=== PATIENT | female | born 1955 | race Caucasian/White ===

== ENCOUNTER → 2016-12-08 | Outpatient (CLI) | payer OTHER ==
[~2016-12-08] MED LIST: BENICAR40 MG PO; CENTRUM SILVER1 EAC1 PO; FISH OIL 1,0001 EAC5 PO; GLUCOPHAGE500 MG PO; JANUVIA100 MG PO; METAMUCIL PAC1 UDPK1; VITAMIN D 3 PO; WELCHOL 625 MG625 MG PO; ZOCOR 10 MG TAB10 MG PO
== END ==
LOC: RAD 04:25
DX: Z12.31 Encounter for screening mammogram for malignant neoplasm of breast (principal)

== ENCOUNTER → 2017-12-12 | Outpatient (CLI) | payer OTHER | LOC: RAD 08:37 | DX: Z12.31 Encounter for screening mammogram for malignant neoplasm of breast (principal) ==